=== PATIENT | male | born 1970 | race Hispanic/Latino ===

== ENCOUNTER 2016-12-14 09:43 | Outpatient (CLI) | payer OTHER ==
--- NOTE | 2016-12-14 13:33 | Ultrasound Report ---
Limited abdominal ultrasound: Elevated liver enzymes. Images of the liver demonstrates normal echo pattern with normal contour and size. The gallbladder is echogenically normal and the CBD diameter is 3 mm. The body and head of the pancreas are well-visualized and unremarkable. The tail is partially obscured. The right renal length is 11.3 cm. The kidney is echogenically normal. The transverse diameter of the proximal abdominal aorta is 2 cm and the mid aorta measures 2 cm. Impressions: No abnormal findings.
== END 2016-12-14 09:44 | disposition home or self-care (01) ==
LOC: SPVWC 09:43
PROVIDERS: ATTEND Internal Medicine
DX: R74.8 Abnormal levels of other serum enzymes (principal)
CPT/HCPCS: 76705